=== PATIENT | female | born 1935 | race Caucasian/White ===

== ENCOUNTER 2020-12-02 14:31 | Inpatient (IN) ==
[2020-12-02 15:23] LABS: Basophils % 0.5 % (0.0-0.8); Eosinophils # 0.1 10*3/uL (0.0-0.87); Eosinophils % 1.7 % (0.00-10.9); Hematocrit 43.3 VOL% (35.7-47.0); Hemoglobin 15.1 GM/DL (12.0-16.0); Immature Granulocytes % 0.4 %; Immature Granulocytes Absolute 0.03 #; Lymphocytes # 1.3 10*3/uL (1.4-4.0); Lymphocytes % 16.8 % (21.3-54.2); Mean Corpuscular HGB Conc 34.9 GM/DL (32-36); Mean Corpuscular Volume 93.1 FL (87-102); Mean Platelet Volume 9.5 FL (9.6-12.0); Monocytes % 5.5 % (1.7-12.7); Neutrophils % 75.1 % (38.7-73.9); Platelet Count 278 T/CUMM (130-400); Red Blood Count 4.65 MC/CUMM (3.8-5.5); Red Cell Distribution Width 13.6 % (9.3-17.3); White Blood Count 7.7 T/CUMM (4-12)
[2020-12-02 15:42] LABS: Calcium 8.9 MG/DL (8.5-10.1); Osmolality,Calculated 260.8 MOS/KG (273-304); Potassium 3.2 MMOL/L (3.5-5.1)
[2020-12-02] MEDS ORDERED: ONDANSETRON 4 MG/2 ML VIAL IV PRN (18:14)
[2020-12-02] MEDS ORDERED: GLUCAGON 1 MG VIAL IM PRN (18:14)
[2020-12-02] MEDS ORDERED: DEXTROSE 50% 25 GM/50 ML VIAL IV PRN (18:14)
[2020-12-02] MEDS ORDERED: ENOXAPARIN 40 MG/0.4 ML SYRINGE SUBCUT SCH (18:30)
[2020-12-02] MEDS ORDERED: ATORVASTATIN 20 MG TABLET PO SCH (21:00)
[2020-12-02] MEDS: LACTATED RINGERS 1,000 ML IV SCH (23:19)
[2020-12-03 04:57] LABS: Basophils # 0.1 10*3/uL (0.0-0.2); Basophils % 0.7 % (0.0-0.8); Eosinophils # 0.2 10*3/uL (0.0-0.87); Eosinophils % 2.3 % (0.00-10.9); Hematocrit 39.4 VOL% (35.7-47.0); Hemoglobin 13.9 GM/DL (12.0-16.0); Immature Granulocytes % 0.3 %; Immature Granulocytes Absolute 0.02 #; Lymphocytes # 1.3 10*3/uL (1.4-4.0); Lymphocytes % 17.9 % (21.3-54.2); Mean Corpuscular HGB Conc 35.3 GM/DL (32-36); Mean Corpuscular Volume 92.3 FL (87-102); Mean Platelet Volume 9.6 FL (9.6-12.0); Monocytes % 7.1 % (1.7-12.7); Neutrophils % 71.7 % (38.7-73.9); Platelet Count 257 T/CUMM (130-400); Red Blood Count 4.27 MC/CUMM (3.8-5.5); Red Cell Distribution Width 13.4 % (9.3-17.3); White Blood Count 7.3 T/CUMM (4-12)
[2020-12-03 05:33] LABS: Calcium 8.7 MG/DL (8.5-10.1); Osmolality,Calculated 262.5 MOS/KG (273-304); Potassium 2.8 MMOL/L (3.5-5.1); Risk Ratio 2.25; VLDL Cholesterol 17.2 MG/DL
[2020-12-03] MEDS: CLOPIDOGREL 75 MG TABLET PO SCH (09:13)
[2020-12-03] MEDS: POTASSIUM CHLORIDE 20 MEQ TABLET PO PRN ×4 (09:13→15:56)
[2020-12-03] MEDS: LACTATED RINGERS 1,000 ML IV SCH (16:25)
[2020-12-03] MEDS ORDERED: ATORVASTATIN 40 MG TABLET PO SCH (21:00)
[2020-12-04] MEDS ORDERED: ASPIRIN EC 81 MG TABLET PO SCH (09:00)
[2020-12-04] MEDS: CLOPIDOGREL 75 MG TABLET PO SCH (10:03)
[2020-12-04 16:11] VITALS: BP 164/58
== END 2020-12-04 19:00 | DRG 65 ==
LOC: N.ED 14:31 → N.EDINP 18:14 → N.4E 22:33
PROVIDERS: ADMIT Internal Medicine; ATTEND Internal Medicine